=== PATIENT | male | born 1955 | race Caucasian/White ===

== ENCOUNTER 2021-04-15 14:29 | Inpatient (IN) | payer MEDICARE, OTHER ==
[2021-04-15 15:02] VITALS: BMI 30.4
[2021-04-15] MEDS ORDERED: diazePAM 5 MG TABLET PO ONE (17:57)
[2021-04-15] MEDS ORDERED: NICOTINE POLACRILEX 2 MG GUM BC PRN (18:06)
[2021-04-15] MEDS ORDERED: NICOTINE 21 MG/24 HOURS TOPICAL PATCH ONE (18:56)
[2021-04-15] MEDS ORDERED: diazePAM 5 MG TABLET ONE ×2 (18:56→22:19)
[2021-04-15] MEDS: NICOTINE 21 MG/24 HOURS TOPICAL PATCH TD SCH (18:59)
[2021-04-15] MEDS ORDERED: MENTHOL/PHENOL 1 EACH UD MM PRN (19:17)
[2021-04-15] MEDS ORDERED: MAG HYDROX/AL HYDROX/SIMETH 30 ML UNIT-DOSE CUP PO PRN (19:17)
[2021-04-15] MEDS ORDERED: BISMUTH SUBSALICYLATE 524 MG/30 ML PO PRN (19:17)
[2021-04-15] MEDS ORDERED: ONDANSETRON *ODT* 4 MG TABLET SL PRN (19:17)
[2021-04-15] MEDS ORDERED: ACETAMINOPHEN 325 MG TABLET (FP) PO PRN ×2 (19:17)
[2021-04-15] MEDS ORDERED: IBUPROFEN 400 MG TABLET (FP) PO PRN (19:17)
[2021-04-15] MEDS ORDERED: MAGNESIUM HYDROX 2400MG/30ML ORAL SUSPENSION 30 ML CUP PO PRN (19:17)
[2021-04-15] MEDS ORDERED: MAGNESIUM CITRATE 300 ML BOTTLE PO PRN (19:17)
[2021-04-15] MEDS: MELATONIN 5 MG TABLETS PO SCH (22:19)
[2021-04-15] MEDS: THIAMINE HCL 100 MG TABLET (FP) PO SCH (22:19)
[2021-04-15] MEDS: diazePAM 5 MG TABLET PO SCH (22:20)
[2021-04-16] MEDS: diazePAM 5 MG TABLET PO PRN (01:15)
[2021-04-16] MEDS: diazePAM 5 MG TABLET PO SCH ×4 (05:12→22:04)
[2021-04-16] MEDS ORDERED: METHADONE HCL 40 MG DISPERSABLE TABLET PO SCH (09:45)
[2021-04-16 10:01] LABS: HEMATOCRIT 28.1 % (35.4-49); MCH 26.6 pg (25.7-33.7); MCHC 31.9 g/dl (32.0-35.9); MEAN CELL VOLUME 83.4 fl (80-96); MEAN PLT VOLUME 8.6 fl (7.5-11.1); PLATELET COUNT 497 10^3/uL (134-434); RBC 3.37 M/mm3 (4.00-5.60); RDW 16.9 % (11.9-15.9); WHITE BLOOD COUNT 6.7 K/mm3 (4.0-10.0)
[2021-04-16 10:11] LABS: CALCIUM 9.2 mg/dL (8.5-10.1)
[2021-04-16] MEDS ORDERED: METHADONE HCL 40 MG DISPERSABLE TABLET ONE (10:11)
[2021-04-16] MEDS ORDERED: METHADONE HCL 10 MG TABLET ONE (10:11)
[2021-04-16 10:12] LABS: ALBUMIN 3.6 g/dl (3.4-5.0); BLOOD UREA NITROGEN 19.4 mg/dL (7-18)
[2021-04-16 10:15] LABS: CREATININE 1.3 mg/dL (0.55-1.3)
[2021-04-16 10:16] LABS: BILIRUBIN,TOTAL 0.6 mg/dL (0.2-1)
[2021-04-16 10:17] LABS: TOT PROT 7.1 g/dl (6.4-8.2)
[2021-04-16] MEDS: METHADONE 80 MG, METHADONE 10 MG PO SCH (10:20)
[2021-04-16] MEDS: PRENATAL VITAMINS W/ FOLIC ACID TABLET (FP) PO SCH (10:21)
[2021-04-16] MEDS: NICOTINE 21 MG/24 HOURS TOPICAL PATCH TD SCH (10:22)
[2021-04-16 11:02] LABS: HIV INTERPRETATION NEGATIVE (NEGATIVE)
[2021-04-16] MEDS: THIAMINE HCL 100 MG TABLET (FP) PO SCH (22:04)
[2021-04-16] MEDS: MELATONIN 5 MG TABLETS PO SCH (22:04)
[2021-04-17] MEDS ORDERED: METHADONE HCL 10 MG TABLET ONE (04:23)
[2021-04-17] MEDS ORDERED: METHADONE HCL 40 MG DISPERSABLE TABLET ONE (04:24)
[2021-04-17] MEDS: METHADONE 80 MG, METHADONE 10 MG PO SCH (05:27)
[2021-04-17] MEDS: diazePAM 5 MG TABLET PO SCH ×3 (05:27→22:16)
[2021-04-17] MEDS: METHOCARBAMOL 500 MG TABLET PO PRN (10:06)
[2021-04-17] MEDS: NICOTINE 21 MG/24 HOURS TOPICAL PATCH TD SCH (10:06)
[2021-04-17] MEDS: diazePAM 5 MG TABLET PO PRN ×2 (10:06→17:46)
[2021-04-17] MEDS: PRENATAL VITAMINS W/ FOLIC ACID TABLET (FP) PO SCH (10:06)
[2021-04-17] MEDS ORDERED: SUVOREXANT 10 MG TABLET PO PRN (22:00)
[2021-04-17] MEDS ORDERED: risperiDONE 1 MG TABLET PO SCH (22:00)
[2021-04-17] MEDS: THIAMINE HCL 100 MG TABLET (FP) PO SCH (22:16)
[2021-04-18] MEDS ORDERED: METHADONE HCL 40 MG DISPERSABLE TABLET ONE (04:50)
[2021-04-18] MEDS ORDERED: METHADONE HCL 10 MG TABLET ONE (04:50)
[2021-04-18] MEDS: METHOCARBAMOL 500 MG TABLET PO PRN (05:58)
[2021-04-18] MEDS: diazePAM 5 MG TABLET PO SCH ×2 (05:58→17:48)
[2021-04-18] MEDS: METHADONE 80 MG, METHADONE 10 MG PO SCH (06:00)
[2021-04-18] MEDS ORDERED: CITALOPRAM HYDROBROMIDE 20 MG TABLET PO SCH (10:00)
[2021-04-18] MEDS: PRENATAL VITAMINS W/ FOLIC ACID TABLET (FP) PO SCH (10:17)
[2021-04-18] MEDS: NICOTINE 21 MG/24 HOURS TOPICAL PATCH TD SCH (10:18)
[2021-04-18] MEDS: risperiDONE 2 MG TABLET PO SCH ×2 (13:35→22:04)
[2021-04-18] MEDS: FERROUS SO4 325 MG TABLET (FP) PO SCH ×2 (13:36→22:04)
[2021-04-18] MEDS ORDERED: ALBUTEROL SO4 HFA INHALER IH PRN (13:53)
[2021-04-18] MEDS ORDERED: ASPIRIN COATED 81 MG TABLET.EC PO SCH (14:00)
[2021-04-18] MEDS ORDERED: EZETIMIBE 10 MG TABLET (FP) PO SCH (14:00)
[2021-04-18] MEDS ORDERED: HYDROCHLOROTHIAZIDE 25 MG TABLET (FP) PO SCH (14:00)
[2021-04-18] MEDS ORDERED: ATORVASTATIN CA 40 MG TABLET (FP) PO SCH (22:00)
[2021-04-18] MEDS: THIAMINE HCL 100 MG TABLET (FP) PO SCH (22:04)
[2021-04-19] MEDS ORDERED: METHADONE HCL 40 MG DISPERSABLE TABLET ONE (04:24)
[2021-04-19] MEDS ORDERED: METHADONE HCL 10 MG TABLET ONE (04:24)
[2021-04-19] MEDS: METHADONE 80 MG, METHADONE 10 MG PO SCH (05:50)
[2021-04-19] MEDS ORDERED: diazePAM 5 MG TABLET PO ONE (06:00)
[2021-04-19 09:18] VITALS: BP 129/74; PULSE 109; TEMP 96.9
== END 2021-04-19 08:58 | disposition home or self-care (01) | DRG 897 ==
LOC: YASAS 14:29 → Y3N 23:48
PROVIDERS: ADMIT Allergy & Immunology; ATTEND Allergy & Immunology
PROC: HZ2ZZZZ Detoxification Services for Substance Abuse Treatment (ICD-10-PCS; principal; 2021-04-15)
DX: F10.230 Alcohol dependence with withdrawal, uncomplicated (principal); F11.20 Opioid dependence, uncomplicated; F19.282 Other psychoactive substance dependence with psychoactive substance-induced sleep disorder; F17.210 Nicotine dependence, cigarettes, uncomplicated; F19.24 Other psychoactive substance dependence with psychoactive substance-induced mood disorder; F60.0 Paranoid personality disorder; I10 Essential (primary) hypertension; E11.65 Type 2 diabetes mellitus with hyperglycemia; E78.5 Hyperlipidemia, unspecified; D64.9 Anemia, unspecified; Z86.19 Personal history of other infectious and parasitic diseases
CPT/HCPCS: 36415; 80053; 82607; 82962; 83540; 83550; 85027; 86780; 87389; C9803; J2794; U0003; U0005